=== PATIENT | male | born 1950 | race African-American/Black ===

== ENCOUNTER 2021-07-04 12:20 | Emergency (ER) | payer MEDICARE ==
[~2021-07-04] VITALS: Ht 182.9 cm; Wt 68.2 kg
[~2021-07-04 12:20] MED LIST: TAMS-13 PO
[2021-07-04 12:26] VITALS: BP 111/61
[2021-07-04 12:52] LABS: COVID AG,FIA SOURCE NASOPHARYNGEAL
== END 2021-07-04 13:49 | disposition home or self-care (01) ==
LOC: EMS 12:29
DX: Z20.822 Contact with and (suspected) exposure to COVID-19 (principal)
CPT/HCPCS: 99283